=== PATIENT | female | born 1955 | race Caucasian/White ===

== ENCOUNTER 2016-10-13 15:51 | Emergency (ER) | payer OTHER ==
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
[~2016-10-13 15:51] MED LIST: CIPRO250 MG; CITALOPRAM HBR40 MG; CYMBALTA; DITROPAN XL; GABAPENTIN300 M2; K-DUR20 ME2 PO; KLONOPIN0.5 M1; LISINOPRIL-HCTZ1 T14; NEXIUM; PERCOCET PO; PHENERGAN25 MG; SOMA
== END 2016-10-13 17:52 | disposition home or self-care (01) ==
LOC: SED 15:51
DX: M94.0 Chondrocostal junction syndrome [Tietze] (principal); I10 Essential (primary) hypertension; Z98.51 Tubal ligation status; N83.209 Unspecified ovarian cyst, unspecified side; F17.200 Nicotine dependence, unspecified, uncomplicated; Z79.899 Other long term (current) drug therapy
CPT/HCPCS: 71020; 99285